=== PATIENT | female | born 1970 | race American Indian/Alaskan Native ===

== ENCOUNTER 2021-01-20 03:50 | Emergency (ER) | payer SELFPAY ==
[2021-01-20 04:18] VITALS: BP 114/63
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
== END 2021-01-20 08:42 | disposition left against medical advice (07) ==
LOC: EDBD → ED 03:50
DX: M79.605 Pain in left leg (principal); Z53.21 Procedure and treatment not carried out due to patient leaving prior to being seen by health care provider

== ENCOUNTER 2021-02-08 07:54 | Emergency (ER) | payer SELFPAY ==
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
== END 2021-02-08 08:35 | disposition home or self-care (01) ==
LOC: ED 07:54
DX: S70.11XA Contusion of right thigh, initial encounter (principal); S80.11XA Contusion of right lower leg, initial encounter; X58.XXXA Exposure to other specified factors, initial encounter; Y93.89 Activity, other specified; Y92.89 Other specified places as the place of occurrence of the external cause; Y99.8 Other external cause status
CPT/HCPCS: 99281